=== PATIENT | male | born 1970 | race Caucasian/White ===

== ENCOUNTER 2017-09-02 11:16 | Emergency (ER) | payer OTHER ==
[~2017-09-02] VITALS: Ht 177.8 cm; Wt 91.1 kg
[~2017-09-02 11:16] MED LIST: NORCO 5/3251 TABLET PO; OMEPRAZOLE20 M2 PO; Pepcid PO; ROBITUSSIN DM118 ML PO; VENTOLIN HFA18 GM IH; Vicodin,Norco 5/325 PO; oxyCODONE PO
[2017-09-02 12:17] LABS: HEMATOCRIT 49.6 % (38.0-50.0); HEMOGLOBIN 16.9 G/DL (12.5-16.6); MCH 30.5 PG (29.0-34.0); MCHC 34.1 G/DL (30.0-36.0); MCV 89.4 FL (86-99); PLATELET COUNT 210 K/uL (156-360); RBC DIS.WIDTH-SD 39.8 % (39-53); RED BLOOD COUNT 5.55 M/uL (4.00-5.50); WHITE BLOOD COUNT 16.9 K/uL (4.1-10.2)
[2017-09-02 12:25] LABS: ALBUMIN 4.2 g/dL (3.2-4.8); CHLORIDE 105 mEq/L (99-109); POTASSIUM 3.9 mEq/L (3.7-5.4); SODIUM 140 mEq/L (136-147)
[2017-09-02 12:27] LABS: GLUCOSE 95 mg/dL (70-99)
[2017-09-02 12:29] LABS: TOTAL BILIRUBIN 0.4 mg/dL (0.0-1.0)
[2017-09-02 12:31] LABS: ALKALINE PHOSPHATASE 82 IU/L (3-129); CREATININE 0.8 mg/dL (0.6-1.3); GFR ESTIMATE (CALCULATED) > 59 mL/min/ (58.99-99999)
[2017-09-02 12:32] LABS: UREA NITROGEN (BUN) 12 mg/dL (9-23)
[2017-09-02 12:33] LABS: AST (GOT) 14 IU/L (2-34)
[2017-09-02 12:34] LABS: ALT (GPT) 21 IU/L (3-49); LIPASE 14 U/L (1.0-51.0)
[2017-09-02 13:59] LABS: APPEARANCE SL.HAZY ((CLEAR)); BILIRUBIN NEGATIVE; BLOOD LARGE; COLOR YELLOW ((YELLOW)); GLUCOSE (STRIP) NEGATIVE; KETONES NEGATIVE; LEUKOCYTES NEGATIVE; NITRITE NEGATIVE; PROTEIN (STRIP) 100; SPECIFIC GRAVITY 1.023 (1.000-1.030)
[2017-09-02 14:12] LABS: BACTERIA RARE /HPF; CALCIUM OXALATE CRYSTALS 1+ /HPF; EPITHELIAL CELLS NONE SEEN /HPF; HYALINE CASTS 0-5 /LPF; MUCUS 1+ /LPF; RED BLOOD CELLS TNTC /HPF (0-5); UCUL ADDED? YES
[2017-09-02] MEDS ORDERED: PERCOCET 5/31 TABLET PO (15:00)
[2017-09-02] MEDS ORDERED: ZOFRAN ODT4 MG PO (15:00)
[2017-09-02] MEDS ORDERED: LEVAQUIN750 MG PO (15:00)
[2017-09-02 15:30] VITALS: BP 126/74
== END 2017-09-02 15:30 | disposition home or self-care (01) ==
LOC: EME 11:16
PROVIDERS: Family Medicine
DX: N12 Tubulo-interstitial nephritis, not specified as acute or chronic (principal); N20.0 Calculus of kidney; K57.30 Diverticulosis of large intestine without perforation or abscess without bleeding; K40.90 Unilateral inguinal hernia, without obstruction or gangrene, not specified as recurrent; F32.9 Major depressive disorder, single episode, unspecified; K21.9 Gastro-esophageal reflux disease without esophagitis; F17.200 Nicotine dependence, unspecified, uncomplicated; Z88.0 Allergy status to penicillin
CPT/HCPCS: 74177; 80053; 81003; 83690; 85027; 87086; 99281; 99285; J0696; J1885; J2270; J2405; J7030

== ENCOUNTER 2017-10-08 13:39 | Emergency (ER) | payer OTHER ==
[~2017-10-08] VITALS: Ht 177.8 cm; Wt 90.1 kg
[~2017-10-08 13:39] MED LIST changes: -MOTRIN800 MG PO; -STOOL SOFTENER250 MG PO
[2017-10-08 14:35] LABS: HEMATOCRIT 49.6 % (38.0-50.0); HEMOGLOBIN 17.1 G/DL (12.5-16.6); MCH 30.7 PG (29.0-34.0); MCHC 34.5 G/DL (30.0-36.0); PLATELET COUNT 214 K/uL (156-360); RBC DIS.WIDTH-CV 12.2 % (11.8-14.6); RBC DIS.WIDTH-SD 39.8 % (39-53); RED BLOOD COUNT 5.57 M/uL (4.00-5.50); WHITE BLOOD COUNT 18.1 K/uL (4.1-10.2)
[2017-10-08 14:53] LABS: CHLORIDE 105 MEQ/L (99-109); POTASSIUM 4.4 MEQ/L (3.7-5.4); SODIUM 139 MEQ/L (136-147)
[2017-10-08 14:58] LABS: CREATININE 0.8 MG/DL (0.6-1.3); GFR ESTIMATE (CALCULATED) > 59 mL/min/ (58.99-99999); GLUCOSE 170 mg/dL (70-99); UREA NITROGEN (BUN) 11 mg/dL (9-23)
[2017-10-08 16:16] LABS: APPEARANCE BLOODY ((CLEAR)); BILIRUBIN NEGATIVE; BLOOD LARGE; COLOR BLOODY ((YELLOW)); GLUCOSE (STRIP) NEGATIVE; KETONES 5; LEUKOCYTES TRACE; NITRITE NEGATIVE; PH, URINE 6.5 (5-8); PROTEIN (STRIP) 30; SPECIFIC GRAVITY 1.024 (1.000-1.030); UROBILINOGEN 0.2 MG/DL (0.2-1.0)
[2017-10-08 17:58] LABS: EPITHELIAL CELLS NONE SEEN /HPF; MUCUS NONE SEEN /LPF
[2017-10-08 17:59] LABS: BACTERIA NONE SEEN /HPF; RED BLOOD CELLS TNTC /HPF (0-5); UCUL ADDED? YES; WHITE BLOOD CELLS RARE /HPF (0-5)
[2017-10-08] MEDS ORDERED: ZOFRAN ODT4 MG PO (18:04)
[2017-10-08] MEDS ORDERED: STOOL SOFTENER250 MG PO (18:04)
[2017-10-08] MEDS ORDERED: PERCOCET 5/31 TABLET PO (18:04)
[2017-10-08] MEDS ORDERED: MOTRIN800 MG PO (18:04)
[2017-10-08 18:34] VITALS: BP 153/102
== END 2017-10-08 18:58 | disposition home or self-care (01) ==
LOC: EME 13:39
DX: N20.0 Calculus of kidney (principal); R11.2 Nausea with vomiting, unspecified; R31.9 Hematuria, unspecified; Z98.890 Other specified postprocedural states; K21.9 Gastro-esophageal reflux disease without esophagitis; F32.9 Major depressive disorder, single episode, unspecified; Z87.442 Personal history of urinary calculi; Z72.0 Tobacco use; Z90.49 Acquired absence of other specified parts of digestive tract; Z88.0 Allergy status to penicillin
CPT/HCPCS: 74018; 80048; 81003; 85027; 87086; 99281; 99284; J1885; J2270; J2405; J7030

== ENCOUNTER → 2017-10-08 | Outpatient (CLI) | payer OTHER ==
[~2017-10-08] VITALS: Ht 177.8 cm; Wt 90.7 kg
[~2017-10-08] MED LIST changes: +ENDOCET 5-3251 EACH PO; +LEVAQUIN750 MG PO; +MOTRIN800 MG PO; +NEXIUM20 MG PO; +PERCOCET 5/31 TABLET PO; +STOOL SOFTENER250 MG PO; +ZOFRAN ODT4 MG PO; +ZOFRAN4 MG PO
[2017-10-08 09:06] LABS: HEMATOCRIT 49.3 % (38.0-50.0); HEMOGLOBIN 16.6 G/DL (12.5-16.6); MCH 29.5 PG (29.0-34.0); MCHC 33.7 G/DL (30.0-36.0); MCV 87.6 FL (86-99); PLATELET COUNT 207 K/uL (156-360); RBC DIS.WIDTH-SD 38.6 % (39-53); RED BLOOD COUNT 5.63 M/uL (4.00-5.50); WHITE BLOOD COUNT 10.7 K/uL (4.1-10.2)
== END | disposition home or self-care (01) ==
LOC: AMB 07:30
PROVIDERS: Urology
PROC: 0TF4XZZ Fragmentation in Left Kidney Pelvis, External Approach (ICD-10-PCS; principal; 2017-10-08)
DX: N20.0 Calculus of kidney (principal); Z87.891 Personal history of nicotine dependence; Z82.49 Family history of ischemic heart disease and other diseases of the circulatory system; Z80.3 Family history of malignant neoplasm of breast
CPT/HCPCS: 74019; 85027; J1100; J1170; J2250; J2405; J3010

== ENCOUNTER 2017-10-29 07:13 | Day surgery (SDC) | payer OTHER ==
[~2017-10-29] VITALS: Ht 177.8 cm; Wt 90.7 kg
[~2017-10-29 07:13] MED LIST changes: +MOTRIN800 MG PO; +STOOL SOFTENER250 MG PO
[2017-10-29 08:51] VITALS: BP 147/93
[2017-10-29 12:15] VITALS: BP 139/90
[2017-10-29 13:20] VITALS: BP 141/84
== END 2017-10-29 13:23 | disposition home or self-care (01) ==
LOC: SDC 07:13
DX: N20.1 Calculus of ureter (principal); N35.9 Urethral stricture, unspecified; K21.9 Gastro-esophageal reflux disease without esophagitis; Z90.49 Acquired absence of other specified parts of digestive tract; Z87.891 Personal history of nicotine dependence; Z82.49 Family history of ischemic heart disease and other diseases of the circulatory system; Z80.3 Family history of malignant neoplasm of breast
CPT/HCPCS: 74018; 74420; 82365 90; C1769; C2625; J0690; J1100; J1170; J1580; J1885; J2405; J3010; J7050